=== PATIENT | male | born 1990 | race Caucasian/White ===

== ENCOUNTER 2021-09-08 23:59 | Emergency (ER) | payer OTHER, SELFPAY ==
[2021-09-09 00:05] VITALS: BP 132/67; PULSE 78; RESP 16; TEMP 36.4; O2SAT 99; BMI 26.3
[2021-09-09 01:02] LABS: IDNOW Serial# 08D9AD1C; Strep A Nucleic Acid Negative (Negative)
--- NOTE | 2021-09-09 01:09 | ED.URI ---
HPI - URI/Sore Throat General Chief Complaint: Upper Respiratory Symptoms Stated Complaint: covid symptoms Time Seen by Provider: 09/09/21 01:09 Source: patient Mode of arrival: ambulatory History of Present Illness HPI Narrative: Patient has already been vaccinated against COVID been having sore throat cough [place] body aches headache for last week no other family member sick no nausea no vomiting no abdominal pain Related Data Previous Rx's Medication Instructions Recorded codeine 10 mg-guaifenesin 100 mg/5 10 ml PO Q4-6H PRN #237 ml 09/09/21 mL oral liquid Allergies Allergy/AdvReac Type Severity Reaction Status Date / Time No Known Allergies Allergy Verified 09/09/21 00:04 Review of Systems Review of Systems: Yes all other systems are reviewed and are negative [facility] Social History Social History Advance Directives: No Advance Directives Information Provided: Yes Physical Exam Vital Signs: Vital Signs: Last Vital Signs Temp 97.6 F 09/09/21 00:05 Pulse 78 09/09/21 00:05 Resp 16 09/09/21 00:05 BP 132/67 09/09/21 00:05 Pulse Ox 99 09/09/21 00:05 BMI result Body Mass Index 26.3 Appearance: Alert. Oriented X3. No acute distress. ENT: Pharynx normal. Oral Mucosa moist Neck: Normal inspection. Neck supple. CVS: Normal heart rate and rhythm. Pulses normal. Respiratory: No respiratory distress. Equal air entry bilateral, no wheezing/rales/rhonchi Abdomen: Soft and nontender. Skin: Skin warm and dry. Normal skin color. Normal skin turgor. Extremities: No lower extremity edema. No calf tenderness Neuro: Oriented X 3. MDM - URI/Sore Throat Lab Data Attestation: I reviewed the patient's lab results. Labs: Lab Results 09/09/21 09/09/21 Range/Units 00:09 00:09 COVID-19 (JONELLE) Negative (Negative) COVID-19 Clin Com See Note S. pyogenes GrpA JACQUELINE Negative (Negative) Discharge Plan Discharge Clinical Impression: Bronchitis Patient Disposition: Home, Self-Care Instructions: Acute Bronchitis (ED) Additional Instructions: Drink plenty of fluid your COVID and strep is negative Cough syrup as advised Tylenol/Motrin for fever or pain Prescriptions: New codeine-guaifenesin 10-100 mg/5 mL liquid 10 ml PO Q4-6H PRN (Reason: cough) Qty: 237 RF: 0
[2021-09-09 01:19] LABS: COVID-19 Test Negative (Negative)
[2021-09-09] MEDS: Benzonatate 100 MG CAPSULE 200 MG PO (02:36)
== END 2021-09-09 02:41 | disposition home or self-care (01) ==
LOC: HO.ED 09-09 01:30
PROVIDERS: Emergency Provider Internal Medicine
DX: J40 Bronchitis, not specified as acute or chronic (principal); Z20.822 Contact with and (suspected) exposure to COVID-19
CPT/HCPCS: 36415; 87635; 87651; 99283

== ENCOUNTER 2023-01-29 15:40 | Outpatient (REF) | payer OTHER, SELFPAY ==
[2023-01-29 15:52] LABS: MANUAL DIFF FLAG NO
[2023-01-29 17:30] LABS: Basophils Absolute Auto 0.1 X10*3/uL (0.0-0.2); Eosinophils Absolute Auto 0.3 X10*3/uL (0.0-0.4); Eosinophils Percent Auto 5.3 % (0-4); Hematocrit 46.8 % (42.0-52.0); Hemoglobin 16.8 g/dl (14.0-18.0); Imm Gran Abs Auto 0.01 X10*3/uL (0.00-0.03); Imm Gran Pct Auto 0.2 % (0.0-0.4); Lymphocytes Absolute Auto 1.8 X10*3/uL (1.2-4.9); Lymphocytes Percent Auto 36.3 % (20-40); Mean Corpuscular HGB Conc 35.9 g/dl (31.0-36.0); Mean Corpuscular Hemoglobin 31.9 pg (27.0-33.0); Mean Platelet Volume 9.6 fL (9.4-12.4); Monocytes Absolute Auto 0.4 X10*3/uL (0.1-1.2); Neutrophils Absolute Auto 2.4 x10*3/uL (2.0-8.3); Neutrophils Percent Auto 48.2 % (45-73); Platelet Count 239 X10*3/uL (160-400); Red Blood Count 5.26 X10*6/uL (4.60-5.80); White Blood Count 4.9 X10*3/uL (4.8-10.8)
[2023-01-29 17:48] LABS: Appearance Urine Clear; Color Urine Yellow; Glucose Urine UA Negative (Negative); Leukocyte Esterase Urine Negative (Negative); Nitrite Urine Negative (Negative); Specific Gravity - Urine 1.015 (1.005-1.025); Urine Blood Negative (Negative); Urine Ketones Negative (Negative); Urine Protein Negative (Neg-Trace)
[2023-01-29 18:58] LABS: Alanine Aminotransferase 20 U/L (0-40); Albumin Level 4.6 g/dL (3.5-5.0); Alkaline Phosphatase 61 U/L (39-117); Anion Gap 13 (12-20); Aspartate Amino Transferase 20 U/L (5-37); Bilirubin Direct 0.2 mg/dL (0.0-0.5); Bilirubin Total 0.7 mg/dL (0.0-1.0); Blood Urea Nitrogen 12 mg/dL (9-16); Calcium 9.1 mg/dL (8.4-10.2); Carbon Dioxide 28 mmol/L (22-29); Chloride 103 mmol/L (96-108); Estimated Glomerular Filt Rate > 60; Glucose Fasting 90 mg/dL (60-99); Potassium 4.8 mmol/L (3.3-5.1); Sodium 139 mmol/L (135-145)
[2023-01-29 19:13] LABS: TSH reflex Free T4 0.85 uIU/mL (0.32-4.0)
== END 2023-01-29 15:41 | disposition home or self-care (01) ==
LOC: HO.LAB 15:40
PROVIDERS: PCP Hospitalist; Visit Provider Hospitalist
DX: Z00.00 Encounter for general adult medical examination without abnormal findings (principal); Z13.9 Encounter for screening, unspecified; Z13.89 Encounter for screening for other disorder
CPT/HCPCS: 36415; 80053; 80076; 81003; 82248; 84443; 85025

== ENCOUNTER 2023-06-02 15:34 | Emergency (ER) | payer OTHER, SELFPAY ==
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
[2023-06-02 16:17] VITALS: BP 157/83; PULSE 83; RESP 16; TEMP 37.1; O2SAT 98; BMI 25.1
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
[2023-06-02] MEDS: Diphth,Pertus(ACell),Tet Adult 0.5 ML SYRINGE IM (17:11)
[2023-06-02] MEDS: Bacitracin Oint 0.9 GM PACKET 1 APPL TOPICAL (17:11)
== END 2023-06-02 18:05 | disposition home or self-care (01) ==
PROVIDERS: Emergency Provider Student in an Organized Health Care Education/Training Program; PCP Hospitalist
DX: S40.011A Contusion of right shoulder, initial encounter (principal); S40.811A Abrasion of right upper arm, initial encounter; S93.402A Sprain of unspecified ligament of left ankle, initial encounter; V23.49XA Other motorcycle driver injured in collision with car, pick-up truck or van in traffic accident, initial encounter; Y92.410 Unspecified street and highway as the place of occurrence of the external cause; Y93.9 Activity, unspecified; Y99.9 Unspecified external cause status; R07.9 Chest pain, unspecified; E78.00 Pure hypercholesterolemia, unspecified; F17.210 Nicotine dependence, cigarettes, uncomplicated
CPT/HCPCS: 71046; 73030; 73610; 90471; 90715; 99282; 99284

== ENCOUNTER 2023-06-06 12:53 | Outpatient (AMB) | payer OTHER, SELFPAY ==
[2023-06-06 13:06] VITALS: BP 126/70; PULSE 72; RESP 12; TEMP 36.9; O2SAT 98; BMI 25.7
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
== END 2023-06-06 13:58 | disposition home or self-care (01) ==
PROVIDERS: PCP Hospitalist; Visit Provider Nurse Practitioner Family
DX: S93.409A Sprain of unspecified ligament of unspecified ankle, initial encounter (principal); T14.8XXA Other injury of unspecified body region, initial encounter; S91.302A Unspecified open wound, left foot, initial encounter
CPT/HCPCS: 99213

== ENCOUNTER 2023-07-03 16:07 | Outpatient (AMB) | payer OTHER, SELFPAY ==
[2023-07-03 16:13] VITALS: BP 122/72; PULSE 64; RESP 12; TEMP 37.1; O2SAT 97; BMI 26.2
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
== END 2023-07-03 16:45 | disposition home or self-care (01) ==
PROVIDERS: PCP Hospitalist; Visit Provider Nurse Practitioner Family
DX: M25.511 Pain in right shoulder (principal); M25.562 Pain in left knee; M25.572 Pain in left ankle and joints of left foot
CPT/HCPCS: 99213

== ENCOUNTER 2023-07-04 14:55 | Outpatient (REF) | payer OTHER, SELFPAY | END 2023-07-04 14:56 | disposition home or self-care (01) | LOC: HO.XRAY 14:55 | PROVIDERS: PCP Nurse Practitioner Family; Visit Provider Nurse Practitioner Family | DX: M25.562 Pain in left knee (principal); M25.572 Pain in left ankle and joints of left foot | CPT/HCPCS: 73560; 73600 ==

== ENCOUNTER 2023-07-21 15:28 | Outpatient (AMB) | payer OTHER, SELFPAY ==
[2023-07-21 15:33] VITALS: BP 118/66; PULSE 64; RESP 12; TEMP 36.6; O2SAT 99; BMI 25.6
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
== END 2023-07-21 16:18 | disposition home or self-care (01) ==
PROVIDERS: PCP Nurse Practitioner Family; Visit Provider Nurse Practitioner Family
DX: M25.562 Pain in left knee (principal)
CPT/HCPCS: 99214

== ENCOUNTER 2023-07-23 14:02 | Outpatient (AMB) | payer OTHER, SELFPAY ==
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
[2023-07-23 14:15] VITALS: BMI 25.5
== END 2023-07-23 14:59 | disposition home or self-care (01) ==
PROVIDERS: PCP Nurse Practitioner Family; Visit Provider Orthopaedic Surgery
DX: M70.42 Prepatellar bursitis, left knee (principal); V23.99XA Unspecified rider of other motorcycle injured in collision with car, pick-up truck or van in traffic accident, initial encounter; Z04.3 Encounter for examination and observation following other accident
CPT/HCPCS: 20610; 99202

== ENCOUNTER → 2023-07-23 14:02 | Outpatient (BNVA) | payer OTHER, SELFPAY | PROVIDERS: PCP Nurse Practitioner Family; Visit Provider Orthopaedic Surgery | DX: M70.42 Prepatellar bursitis, left knee (principal); M25.562 Pain in left knee | CPT/HCPCS: 20610 ==

== ENCOUNTER 2023-08-11 07:46 | Outpatient (REF) | payer OTHER, SELFPAY ==
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
== END 2023-08-11 07:47 | disposition home or self-care (01) ==
LOC: HO.CT 07:46
PROVIDERS: PCP Nurse Practitioner Family; Visit Provider Nurse Practitioner Family
DX: M25.562 Pain in left knee (principal)
CPT/HCPCS: 73700

== ENCOUNTER 2023-08-13 13:36 | Outpatient (AMB) | payer SELFPAY ==
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
== END 2023-08-13 14:06 | disposition home or self-care (01) ==
PROVIDERS: PCP Nurse Practitioner Family; Visit Provider Orthopaedic Surgery
DX: M70.42 Prepatellar bursitis, left knee (principal)
CPT/HCPCS: 99212

== ENCOUNTER → 2023-08-13 13:36 | Outpatient (BNVA) | payer OTHER, SELFPAY | PROVIDERS: PCP Nurse Practitioner Family; Visit Provider Orthopaedic Surgery ==

== ENCOUNTER 2024-07-27 08:00 | Outpatient (AMB) | payer OTHER, SELFPAY ==
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
[2024-07-27 08:14] VITALS: BP 132/70; PULSE 63; RESP 14; O2SAT 99; BMI 23.5
== END 2024-07-27 08:37 | disposition home or self-care (01) ==
PROVIDERS: PCP Nurse Practitioner Family; Visit Provider Nurse Practitioner Family
DX: Z00.00 Encounter for general adult medical examination without abnormal findings (principal); E78.00 Pure hypercholesterolemia, unspecified; T14.90XD Injury, unspecified, subsequent encounter; M25.572 Pain in left ankle and joints of left foot; G89.29 Other chronic pain

== ENCOUNTER → 2024-07-27 08:00 | Outpatient (BNVA) | payer SELFPAY | PROVIDERS: PCP Nurse Practitioner Family; Visit Provider Nurse Practitioner Family ==

== ENCOUNTER 2024-07-27 08:44 | Outpatient (REF) | payer SELFPAY ==
[2024-07-27 11:50] LABS: Alanine Aminotransferase 19 U/L (0-40); Albumin Level 4.5 g/dL (3.5-5.0); Alkaline Phosphatase 61 U/L (39-117); Anion Gap 10 (12-20); Aspartate Amino Transferase 33 U/L (5-37); Bilirubin Total 0.3 mg/dL (0.0-1.0); Blood Urea Nitrogen 19 mg/dL (9-16); Calcium 9.5 mg/dL (8.4-10.2); Carbon Dioxide 29 mmol/L (22-29); Chloride 105 mmol/L (96-108); Cholesterol 170 mg/dL (<200); Estimated Glomerular Filt Rate > 60; Glucose Random 98 mg/dL (60-115); HDL Cholesterol 60 mg/dL (>40); LDL Cholesterol Calculated 95 mg/dL (<100); Potassium 3.6 mmol/L (3.3-5.1); Sodium 140 mmol/L (135-145); Total Protein 6.9 g/dL (6.5-8.0); Triglycerides 79 mg/dL (<150)
[2024-07-27 12:01] LABS: Estimated Average Glucose 103 mg/dL; Hemoglobin A1C 119.5637 umol/L; Hemoglobin A1c % 5.2 % (<6.0); Total Hemoglobin (HGBA1C) 3542.1937 umol/L
[2024-07-27 12:10] LABS: TSH reflex Free T4 1.66 uIU/mL (0.32-4.0)
[2024-07-27 12:27] LABS: Creatinine Urine 76.54 mg/dL; Microalbumin Urine < 5.0 mg/L
== END 2024-07-27 08:45 | disposition home or self-care (01) ==
LOC: HO.WFDLDS 08:44
PROVIDERS: Visit Provider Nurse Practitioner Family
DX: Z00.00 Encounter for general adult medical examination without abnormal findings (principal); Z13.1 Encounter for screening for diabetes mellitus
CPT/HCPCS: 36415; 80053; 80061; 82043; 82570; 83036; 84443; 96127

== ENCOUNTER 2025-07-29 12:03 | Outpatient (AMB) | payer OTHER, SELFPAY ==
[2025-07-29 12:06] VITALS: BP 116/78; PULSE 60; TEMP 36.6; O2SAT 98; BMI 24.4
--- NOTE | 2025-07-29 12:06 | MHC.PC.OV ---
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 younger, screening is not generally recommended. You should talk with your provider about if you have a higher risk for prostate cancer. Risk factors include: Having a family history of prostate cancer (especially a brother or father) Being If you choose to be tested, the PSA blood test is repeated over time (yearly or less often), though the best frequency is not known. Prostate examinations are no longer routinely done on men with no symptoms. Prostate cancer SKIN EXAM Your provider may check your skin for signs of skin cancer, especially if you're at high risk. People at high risk include those who have had skin cancer before, have close relatives with skin cancer, or have a weakened immune system. TESTICULAR EXAM The [place] Preventive Services Task Force (USPSTF) now recommends against performing testicular self-exams. Doing testicular self-exams has been shown to have little to no benefit.
== END 2025-07-29 12:24 | disposition home or self-care (01) ==
LOC: HO.HMCFM 12:04
PROVIDERS: PCP Nurse Practitioner Family; Visit Provider Nurse Practitioner Family
DX: Z00.00 Encounter for general adult medical examination without abnormal findings (principal); Z28.21 Immunization not carried out because of patient refusal; H11.432 Conjunctival hyperemia, left eye; K08.89 Other specified disorders of teeth and supporting structures; E78.00 Pure hypercholesterolemia, unspecified; F12.90 Cannabis use, unspecified, uncomplicated

== ENCOUNTER → 2025-07-29 12:03 | Outpatient (BNVA) | payer OTHER, SELFPAY | PROVIDERS: PCP Nurse Practitioner Family; Visit Provider Nurse Practitioner Family | DX: Z00.00 Encounter for general adult medical examination without abnormal findings (principal); M70.52 Other bursitis of knee, left knee; R51.9 Headache, unspecified; E78.5 Hyperlipidemia, unspecified; H11.432 Conjunctival hyperemia, left eye; K08.89 Other specified disorders of teeth and supporting structures; E78.00 Pure hypercholesterolemia, unspecified; F12.90 Cannabis use, unspecified, uncomplicated; Z28.21 Immunization not carried out because of patient refusal | CPT/HCPCS: 96127 ==